=== PATIENT | female | born 1970 | race Caucasian/White ===

== ENCOUNTER 2021-05-05 10:36 | Emergency (ER) | payer OTHER ==
[2021-05-05 10:48] VITALS: BP 135/74; PULSE 84; TEMP 97.9; BMI 31.6
[2021-05-05] MEDS ORDERED: ASPIRIN 81 MG CHEWABLE TABLETS PO ONE (11:17)
[2021-05-05] MEDS ORDERED: KETOROLAC TROMETHAMINE 30 MG/1 ML VIAL IVPUSH ONE (11:18)
[2021-05-05] MEDS ORDERED: KETOROLAC TROMETHAMINE 30 MG/1 ML VIAL ONE (11:30)
[2021-05-05] MEDS ORDERED: ASPIRIN 81 MG CHEWABLE TABLETS ONE (11:41)
[2021-05-05 11:46] LABS: BASO % 1.9 % (0-2.0); EOS % 1.8 % (0-4.5); HEMOGLOBIN 13.3 GM/dL (10.7-15.3); LYMPH % 44.7 % (8-40); MCH 29.7 pg (25.7-33.7); MEAN CELL VOLUME 87.3 fl (80-96); MEAN PLT VOLUME 8.2 fl (7.5-11.1); MONO % 7.4 % (3.8-10.2); NEUT % 44.2 % (42.8-82.8); PLATELET COUNT 302 10^3/uL (134-434); RBC 4.47 M/mm3 (3.60-5.2); RDW 14.9 % (11.6-15.6); WHITE BLOOD COUNT 4.5 K/mm3 (4.0-10.0)
[2021-05-05 11:52] LABS: INR 1.06 (0.83-1.09); PROTHROMBIN TIME (PATIENT) 12.4 SEC (9.7-13.0)
[2021-05-05 11:55] LABS: ACTIVATED PTT 34.8 SECONDS (25.2-36.5)
[2021-05-05 12:03] LABS: CHLORIDE 108 mmol/L (98-107); SODIUM 141 mmol/L (136-145)
[2021-05-05 12:05] LABS: ALBUMIN 3.3 g/dl (3.4-5.0); ANION GAP 6 MMOL/L (8-16); BLOOD UREA NITROGEN 9.7 mg/dL (7-18); CALCIUM 9.2 mg/dL (8.5-10.1); CO2 27 mmol/L (21-32); GLUCOSE,RANDOM 117 mg/dL (74-106); LIPASE 58 U/L (73-393)
[2021-05-05 12:08] LABS: CREATININE 0.7 mg/dL (0.55-1.3); MAGNESIUM 2.3 mg/dL (1.8-2.4); SGOT/AST 21 U/L (15-37); SGPT/ALT 33 U/L (13-61)
[2021-05-05 12:11] LABS: BILIRUBIN,TOTAL 0.3 mg/dL (0.2-1); TOT PROT 7.4 g/dl (6.4-8.2)
[2021-05-05 12:12] LABS: ALK PHOS 115 U/L (45-117)
== END 2021-05-05 13:58 | disposition home or self-care (01) ==
LOC: JER 10:36
PROC: 3E0333Z Introduction of Anti-inflammatory into Peripheral Vein, Percutaneous Approach (ICD-10-PCS; principal; 2021-05-05)
DX: R07.9 Chest pain, unspecified (principal)
CPT/HCPCS: 36415; 71046-TC-FY; 71275-TC; 80053; 82550; 83690; 83735; 84484; 84703; 85025; 85379; 85610; 85730; 93005; 93010; 99285-25